=== PATIENT | male | born 1980 ===

== ENCOUNTER → 2018-07-04 21:41 | Outpatient (REF) | payer OTHER, SELFPAY ==
[2018-07-05 00:42] LABS: Hematocrit 49.4 % (41-53); Hemoglobin 16.2 g/dL (13.5-17.5); Mean Corpuscular HGB Conc 32.7 % (30-36); Mean Corpuscular Hemoglobin 26.6 PG (26-34); Mean Corpuscular Volume 81.2 fL (80-100); Platelet Count 169 X10^3/uL (150-400); Red Blood Cell Count 6.08 X10^6/uL (4.5-5.9); White Blood Cell Count 7.5 X10^3/uL (4.5-11.0)
[2018-07-05 00:44] LABS: Add Manual Diff / Slide Review YES
[2018-07-05 01:59] LABS: Neutrophils Absolute Manual 4275 /uL (3000-5900); RBC Morphology Normal Morphology; Total Cells Counted 100
[2018-07-05 02:38] LABS: Alanine Aminotransferase 33 IU/L (21-72); Albumin 4.5 g/dL (3.5-5.0); Albumin Globulin Ratio 1.5 (1.0-2.8); Alkaline Phosphatase 65 U/L (38-126); Aspartate Aminotransferase 32 IU/L (17-59); BUN Creatinine Ratio 17.7 (6-22); Bilirubin Total 0.5 mg/dL (0.2-1.3); Blood Urea Nitrogen 23 mg/dL (9-20); Calcium 9.6 mg/dL (8.4-10.2); Carbon Dioxide 29 mmol/L (22-32); Chloride 99 mmol/L (98-107); Estimated Glomerular Filt Rate > 60.0 mL/min (>60); Glucose 83 mg/dL (70-100); Potassium 4.2 mmol/L (3.4-5.1); Sodium 137 mmol/L (137-145); Total Protein 7.5 g/dL (6.3-8.2); Uric Acid 6.2 mg/dL (3.5-8.5)
[2018-07-05 02:43] LABS: Hemoglobin A1C% w Est Avg Glu 5.4 % (4.0-6.0)
[2018-07-05 02:44] LABS: HEMOLYSIS < 15 (0-50)
[2018-07-05 03:02] LABS: Free T4, Direct Thyroxine 1.22 ng/dL (0.78-2.19)
[2018-07-05 03:13] LABS: Ferritin 24.1 ng/mL (17.9-464)
[2018-07-05 03:16] LABS: Thyroid Stimulating Hormone 0.75 uIU/mL (0.47-4.68)
[2018-07-05 03:29] LABS: High Sensitivity CRP - Cardiac 0.5 mg/L (1.0-3.0)
[2018-07-06 15:12] LABS: Anti Thyroglobulin Antibody < 1 IU/mL (< 2); Thyroid Peroxidase Antibodies < 1 IU/mL (< 9)
== END ==
LOC: LAB 21:41
PROVIDERS: Visit Provider Family Medicine
DX: R07.89 Other chest pain (principal); R53.83 Other fatigue; E29.1 Testicular hypofunction; G44.52 New daily persistent headache (NDPH); Z13.89 Encounter for screening for other disorder
CPT/HCPCS: 36415; 80053; 82728; 83036; 84439; 84443; 84550; 85025; 86140; 86376; 86800